=== PATIENT | female | born 2005 | race African-American/Black ===

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

== ENCOUNTER 2025-03-07 07:11 | Emergency (ER) | payer OTHER, SELFPAY ==
--- OUTSIDE RECORDS SUMMARY | 2025-03-07 07:13 | XMS_ITS | Clinical Summary ---
Author Organization [facility] Address [address] [place] [id number] Care Team Providers Care Strawhat Sizer Name Role Phone Pcp, No Primary Care Provider Unavailabl e Allergies No known active allergies Medications escitalopram oxalate (LEXAPRO) 20 mg tablet Take 20 mg by mouth. 07/01/2022 Active Active Problems No known active problems Social History Tobacco Use Types Packs/Day Years Used Date Smoking Tobacco: Never Smokeless Tobacco: Never Tobacco Cessation:Counseling Given: Yes Alcohol Use Standard Drinks/Week Comments Never 0 (1 standard drink = 0.6 oz pur e alcohol) Social Connections Answer Date Recorded Frequency of Communication with Friends and Fami ly Not on file 08/06/2022 Comments No Sex and Gender Information Value Date Recorded Sex Assigned at Not on file Legal Sex Female 4:37 PM CDT Gender Identity Not on file Sexual Orientation Not on file Obstetrics History Last Filed Vital Signs Vital Sign Reading Time Taken Comments Blood Pressure 108/71 08/06/2022 4:14 PM CDT Pulse 46 08/06/2022 4:14 PM CDT Temperature - - Respiratory Rate - - Oxygen Saturation 99% 08/06/2022 4:14 PM CDT Inhaled Oxygen Concentration - - Weight 64.4 kg (142 lb) 08/06/2022 4:14 PM CDT Height - - Body Mass Index - - Plan of Treatment Health Maintenance Due Date Last Done Comments Well Child Check for age 3-20 02/15/2007 Tdap 2015 Depression screening for age 12+ 2016 HIV for age 15-65 2019 HPV series for age 9-26 (1 - 3-dose series) 2019 Chlamydia for age 16-24 2020 BMI (ht and wt on same day) for age 18+ 2022 Hepatitis C screening for age 18-79 2022 Tetanus booster 2024 COVID-19 vaccine series ( season) 2024 Influenza Vaccine (Season Ended) 2025 Meningococcal series for age 11-21 Aged Out No longer eligible based on patient's age to complete this topic Pneumococcal series for age 6-49 Aged Out No longer eligible based on patient's age to complete this topic [place] [id number] Care Teams Strawhat Sizer Relationship Specialty Start Date End Date Pcp, No . PCP - General 08/06/22
[2025-03-07 07:16] VITALS: BP 118/78; PULSE 69; RESP 16; TEMP 35.8; O2SAT 100; BMI 23.4
--- NOTE | 2025-03-07 07:41 | ED_ITS ---
HPI - General Adult General Chief complaint: Ear/Nose/Throat Problem Stated complaint: headache Time Seen by Provider: 03/07/25 07:27 Source: patient Mode of arrival: ambulatory Limitations: no limitations History of Present Illness HPI narrative: 19-year-old female with no chronic medical conditions presents to the emergency department for evaluation of right ear pain since last evening. Took ibuprofen 10 hours ago which was 400 mg and has since worn off and her pain is return. She has not tried re-dosing her medication. No drainage from the ear, no symptoms in the opposite left ear. Does have a little bit of a stuffy nose, no sore throat, no difficulty breathing. No drainage from the ear, no trauma or injury. No prior history of ear surgeries. Not immunocompromised, on cancer treatment or any other risk factors for severe infection and she does report that she had her typical childhood vaccines. Past medical history benign per her report besides anxiety disorder. Takes Lexapro with good results no recent dose adjustments. Nonsmoker, no pertinent travel. ROS is notable for the right earache only, otherwise denies times 12 systems Related Data Home Medications ?Medication ?Instructions ?Recorded ?Confirmed escitalopram oxalate 20 mg tablet 20 mg PO QDAY 12/01/23 03/07/25 (Lexapro) Allergies Allergy/AdvReac Type Severity Reaction Status Date / Time No Known Drug Allergies [facility] Verified 03[facility]07[facility]25 07[facility] Social History Smoking Status: Never smoker Do you use any of these nicotine containing products: None How often do you have a drink containing alcohol: never How often do you have six or more drinks on one occasion: Never AUDIT-C Alcohol total score: 0 Non-prescribed substance use: denies use Exam Const: Vital Signs, click to edit/add: Vital Signs - 24 hr 03/07/25 07:16 Temperature 96.5 F L Pulse Rate [Pulse Oximeter] 69 Respiratory Rate 16 Blood Pressure [Ri ght Upper Arm] 118/78 Pulse Oximetry 100 Oxygen Delivery Me thod Room Air Documenting provider has reviewed patient's vital signs: yes Common normals: no apparent distress General appearance: cooperative and well kempt HENMT: Common normals: normocephalic, moist oral mucous membranes and dentition normal Head and scalp: normocephalic Other: Left TM normal. Right TM with serous effusion but no redness, no dullness, no purulent material. Light reflex is adequate. Canal is normal. The nose has a little bit of clear mucus rhinorrhea oropharynx with clear mucus postnasal drip, mild erythema to the tonsillar pillars but no swelling or plaques. Eye: Common normals: conjunctivae normal General eye: normal appearance of both eyes Conjunctiva: conjunctiva(e) normal Neck & C-Spine: Common normals: no lymphadenopathy General: normal visual inspection Resp: Common normals: normal respiratory effort, no use of accessory muscles and clear to auscultation bilaterally Effort & inspection: able to speak in complete sentences Auscultation: clear to auscultation bilaterally Cardio: Common normals: regular rate, regular rhythm, S1 normal heart sound, S2 normal heart sound and no murmurs Rate: regular rate Rhythm: regular rhythm Heart sounds: S1 normal and S2 normal Extremity: Common normals: normal to inspection and normal capillary refill Psych: Appearance: well kempt Activity/motor behavior: appropriate eye contact Mood and affect: euthymic mood Attention/concentration: attention grossly intact Memory/cognition: memory grossly intact Insight: insight good Judgement: judgment good Skin: Common normals: no rashes or lesions noted General skin exam: no rashes or lesions noted Course Course ED Course: 19-year-old female with right earache, no evidence of bacterial infection. No fevers or other signs of severe infection. No evidence of meningitis, encephalitis or other complication on exam. Counseled patient on conservative management, symptomatic treatment only. Most likely this is caused by a viral illness. Recommended nasal steroid spray 1 spray in each nostril 2 times daily for the next 2 weeks. Tylenol 1000 mg every 6 hours as needed for pain, ibuprofen 600 mg every 6 hours. Counseled on alarm symptoms that would warrant ED evaluation and counseled on management if ear drum rupture. Hearing should return within a few weeks as pressure in the station tube normalizes. She verbalizes understanding and agreement and declines pain medicine treatment here in the ED. Vital Signs Vital signs: Initial Vital Signs Temperature 96.5 F L 03/07/25 07:16 Temperature Source Temporal Artery Scan 03/07/25 07:16 Pulse Rate 69 03/07/25 07:16 Pulse Rhythm Regular 03/07/25 07:16 Pulse Strength 3+ Normal 03/07/25 07:16 Respiratory Rate 16 03/07/25 07:16 Blood Pressure 118/78 03/07/25 07:16 Blood Pressure Mean 91 03/07/25 07:16 Blood Pressure Position Sitting 03/07/25 07:16 Pulse Oximetry 100 03/07/25 07:16 Oxygen Delivery Method Room Air 03/07/25 07:16 Vital Signs Temperature 96.5 F L 03/07/25 07:16 Pulse Rate 69 03/07/25 07:16 Respiratory Rate 16 03/07/25 07:16 Blood Pressure 118/78 03/07/25 07:16 Pulse Oximetry 100 03/07/25 07:16 Oxygen Delivery Method Room Air 03/07/25 07:16 Temperature 96.5 F L 03/07/25 07:16 Pulse Rate 69 03/07/25 07:16 Respiratory Rate 16 03/07/25 07:16 Blood Pressure 118/78 03/07/25 07:16 Pulse Oximetry 100 03/07/25 07:16 Oxygen Delivery Method Room Air 03/07/25 07:16 Discharge Plan Discharge Clinical Impression: Acute serous otitis media of right ear Patient Disposition: Home, Self-Care Condition: Stable Instructions: Fluid In The Ear (Serous Otitis Media) (ED) Additional Instructions: As we discussed, there are no signs of infection in the ear but you do have increased fluid behind the eardrum. This tends to happen when you have an upper respiratory infection that causes a postnasal drip, irritation of the back of the throat and subsequent swelling of the eustachian tube. The eustachian tube is the tube that vents your ear and makes her ears pop when you swallow. Any changes a pressure in this tube will cause fluid to back up into the ear drum and cause increased pain. Antibiotics will not help this condition. The fluid will dissipate on its own as the virus clears in 5-15 days. Her hearing will return within the next month. If it does not, I would want you to make an appointment to be re-evaluated in the clinic. Intermittent symptoms and freq uent popping and crackling are common while this heals. If the eardrum ruptures which can happen from the increased fluid it is also not terribly dangerous. We would want you to be re-evaluated in the clinic and be started on a special ear drops if this happens. Fortunately, you tend to feel much better if the eardrum ruptures but your hearing will be even more decreased temporarily. Would like for you to purchase an [id number] nasal steroid spray. Most common brand is Flonase sold as nasal fluticasone. Any of the similar products are reasonable choices as well. But 1 spray in each nostril 2 times daily for the next 2 weeks. This will decrease the inflammation around the eustachian tube. For pain. I recommend Tylenol 1000 mg every 6 hours and ibuprofen 600 mg every 6 hours. Remember that Aleve and ibuprofen or in the same family so I do not want you doubling up on those but it is safe to alternate between ibuprofen and Tylenol every 3 hours to maximize her pain control. Warm compresses to the outer right ear may also be helpful. He should come back to the emergency department if you have neurological changes, severe headache with high fever, neck stiffness or other signs of severe infection. You are cleared to return to school or work duties today. Activity Level: No Restrictions Discharge Diet: Regular Prescriptions: No Action escitalopram oxalate [Lexapro] 20 mg tablet 20 mg PO QDAY Follow Up/Referrals: Provider,Not a Local [Primary Care Provider] - Stand Alone Forms: Girl Meets Dress Info Instructions
--- OUTSIDE RECORDS SUMMARY | 2025-03-07 07:47 | XMS_ITS | Clinical Summary ---
Author Organization [facility] Address [address] [place] [id number] Care Team Providers Care Graphotype Operator Name Role Phone Pcp, No Primary Care [...] this topic [place] [id number] Care Teams Graphotype Operator Relationship Specialty Start Date End Date Pcp, No . PCP - General 08/06/22
== END 2025-03-07 08:00 | disposition home or self-care (01) ==
LOC: ED 07:45
PROVIDERS: Emergency Provider Family Medicine
DX: H65.01 Acute serous otitis media, right ear (principal)
CPT/HCPCS: 99283